=== PATIENT | female | born 1960 | race Caucasian/White ===

== ENCOUNTER 2020-06-28 16:45 | Outpatient (CLI) | payer BC ==
--- NOTE | 2020-06-28 17:01 | SJPRAD ---
EXAM: CHEST TWO VIEWS 06/28/2020 4:58 PM HISTORY: Cough and right-sided chest pain history of Covid testing COMPARISON: None. FINDINGS: Lungs: No acute airspace consolidation. Heart: Normal in size and contour. Pulmonary Vessels: Normal. Costophrenic Angles: Clear. Pneumothorax: None. Osseous Structures: Intact. Additional Findings: None. IMPRESSION: No significant acute intrathoracic disease.
== END 2020-06-28 16:46 | disposition home or self-care (01) ==
LOC: SCSRAD 16:45
PROVIDERS: ATTEND Physician Assistant
DX: R05 Cough (principal)
CPT/HCPCS: 87635; U0003